=== PATIENT | male | born 1940 | race Two or more races ===

== ENCOUNTER 2019-06-04 08:31 | Emergency (ER) | payer BC ==
[2019-06-04 08:36] VITALS: BMI 28.0
--- NOTE | 2019-06-04 08:42 | PDOC ---
History of Present Illness - General Chief Complaint: Chest Pain Stated Complaint: Chest Pain Time Seen by Provider: 06/04/19 08:42 History Source: Patient, Spouse () Exam Limitations: No Limitations - History of Present Illness Initial Comments: Pt is a 79 yo M, with PMH of CAD (DC 2011 with 2 stents placed), HTN, HLD, IDDM , and gout, who is presenting with substernal chest pain since this morning around 6 am. Pt was at the gym when he experienced substernal chest pain associated with diaphoresis and nausea while he was exercising. Pt denies radiation or vomiting. Pt has "not been feeling well" over the past 2 weeks, with increased swelling of his legs. Pt denies any recent fevers/chills, headache, vision changes, syncope, palpitations, SOB, nausea/vomiting, abdominal pain, urinary symptoms, diarrhea/constipation, or leg swelling. Allergies: NKDA Social: Pt denies any cigarette, alcohol, or drug use. Pt denies any recent travel or sick contacts. Surgical: colon stent and resection (2/2 ischemic colitis) and cardiac stents as above. Family: no relevant history. 06/04/19 09:11 Past History - Travel Traveled outside of the country in the last 30 days: No Close contact w/someone who was outside of country & ill: No - Past Medical History Allergies/Adverse Reactions: Allergies Allergy/AdvReac Type Severity Reaction Status Date / Time No Known Allergies Allergy Verified 06/04/19 08:33 Home Medications: Ambulatory Orders Aspirin [Aspirin EC] 81 mg PO DAILY 06/04/19 Atorvastatin Ca [Lipitor] 40 mg PO DAILY 06/04/19 Febuxostat [Uloric] 40 mg PO DAILY 06/04/19 Nifedipine ER [Procardia Xl -] 60 mg PO DAILY 06/04/19 Saxagliptin HCl [Onglyza] 2.5 mg PO DAILY 06/04/19 Anemia: No Asthma: No Cancer: No Cardiac Disorders: Yes (2 stents) CVA: No COPD: No CHF: No Dementia: No Diabetes: Yes GI Disorders: Yes (H/O ISCHEMIC COLITIS) Disorders: No HTN: Yes Hypercholesterolemia: No Liver Disease: No Seizures: No Thyroid Disease: No - Surgical History Abdominal Surgery: Yes (COLON RESECTION, UMBILICAL HERNIA REPAIR) Appendectomy: No Cardiac Surgery: Yes (2 stents in 2004) Cholecystectomy: No Lung Surgery: No Neurologic Surgery: No Orthopedic Surgery: Yes (RT SHOULDER) - Immunization History Immunization Up to Date: Yes - Suicide/Smoking/Psychosocial Hx Smoking Status: No Smoking History: Never smoked Have you smoked in the past 12 months: No Number of Cigarettes Smoked Daily: 0 Hx Alcohol Use: No Drug/Substance Use Hx: No Substance Use Type: None Review of Systems - Review of Systems Able to Perform ROS?: Yes Is the patient limited [place] proficient: No Constitutional: Yes: Diaphoresis, Weight Stable. No: Chills, Fever, Loss of Appetite, Malaise, Weakness HEENTM: No: Blurred Vision, Double Vision, Nose Congestion, Throat Pain, Throat Swelling, Difficulty Swallowing Respiratory: No: Cough, Orthopnea, Shortness of Breath, Wheezing, Productive cough, Hemoptysis Cardiac (ROS): Yes: Chest Pain. No: Edema, Irregular Heart Rate, Lightheadedness, Palpitations, Syncope, Chest Tightness ABD/GI: No: Constipated, Diarrhea, Nausea, Poor Appetite, Poor Fluid Intake, Vomiting : No: Burning, Pain, Urgency Musculoskeletal: No: Back Pain Integumentary: No: Rash Neurological: No: Paresthesia, Weakness, Unsteady Gait, Dizziness Psychiatric: No: Sleep Pattern Change, Change in Appetite Endocrine: No: Increased Urine, Change in Weight Hematologic/Lymphatic: Yes: Blood Clots (prior DC, ischemic colitis). No: Anemia, Easy Bleeding, Easy Bruising *Physical Exam - Vital Signs Last Vital Signs Temp Pulse Resp BP Pulse Ox 98.0 F 78 18 138/71 98 06/04/19 08:34 06/04/19 08:34 06/04/19 08:34 06/04/19 08:34 06/04/19 08:34 - Physical Exam Comments: Vitals stable, pt afebrile. Pt appears pale and uncomfortable, normal body habitus. Pt alert and oriented x3. manager reading generally intact, muscular strength and sensation intact. No midline spinal tenderness, step-offs, or crepitus. Head normocephalic, atraumatic. Eyes PERRLA, EOMI. Oropharynx without erythema or exudates, no LAD b/l. No nasal congestion, hearing intact. Clear heart sounds, S1/S2, no JVD, or heart murmur. B/l non-pitting pedal edema. Clear lung sounds, no respiratory distress, wheezes, crackles, or accessory muscle use. No abdominal or CVA tenderness to palpation, no rebound, no guarding. Abdomen soft, non-distended, and with normoactive bowel sounds. Skin without jaundice or rash. 06/04/19 09:14 Heart Score/ECG Review - History History: Highly suspicious - Electrocardiogram EKG: Significant ST-depression - Age Age: >/= 65 - Risk Factors Risk Factors Heart Score: Yes Hx Hypercholesterolemia, Yes Hx Hypertension, Yes Hx Diabetes Based on the list above the patient has:: >/=3 risk factors or Hx atherosclerotic disease - ECG Intrepretation Comment:: anterior STEMI 06/04/19 09:21 - ST and T ST Elevation Suggest: Acute Myocardial Infarct ED Treatment Course - LABORATORY CBC & Chemistry Diagram: 06/04/19 08:53 06/04/19 08:53 Medical Decision Making - Medical Decision Making Pt was seen at bedside, also will be seen by attending Dr. Enciso. Pt presenting with acute substernal chest pain associated with diaphoresis and nausea, during exertion at the gym this AM. PMH of CAD with 2 cardiac stents 2/2 DC in 2011, as well as ischemic colitis. ECG done in triage showed anterior STEMI. Pt will be transferred to [facility]). Lab orders placed (not resulted by time of transfer) -- CBC, coags, CMP, cardiac profile, ECG Provided brilinta loading dose, IV heparin, full dose ASA, and 1 SL NG for continued chest pain. Will continue to reassess pt and monitor for symptomatic improvement. ECG: NSR, LAD with anterior STMEI, intervals WNL (HR 81, HI 208, QRS 86, QTc [address] changes from prior ECG (2014). Pt will be transferred to [facility] directly to cardiac laborer [employer] (admitted to Dr. Villalobos with report from Dr. Enciso given). Pt received meds before being transferred. Transfer center called at 850 AM, pt on stretcher for ambulance transfer at 903 AM. Pt was hemodynamically stable while in the ED. 06/04/19 09:22 *DC/Admit/Observation/Transfer Diagnosis at time of Disposition: H/O heart artery stent STEMI (ST elevation myocardial infarction) Qualifiers: Involved coronary artery: unspecified coronary artery Qualified Code(s): I21.3 - ST elevation (STEMI) myocardial infarction of unspecified site Chest pain Qualifiers: Chest pain type: chest pain due to myocardial ischemia Ischemic chest pain type : other angina pectoris type Qualified Code(s): I20.8 - Other forms of angina pectoris - Discharge Dispostion Disposition: TRANSFER ACUTE CARE/OTHER HOSP Condition at time of disposition: Critical Decision to Admit order: No - Referrals - Patient Instructions - Post Discharge Activity - Transfer to Acute Care Facility Receiving Facility: [facility] Supervisor)
[2019-06-04] MEDS ORDERED: ASPIRIN 325 MG TABLET PO ONE (08:43)
[2019-06-04] MEDS ORDERED: HEPARIN NA (PORCINE) 5,000 UNITS/ML 1ML VIAL IVPUSH ONE (08:43)
[2019-06-04] MEDS ORDERED: ASPIRIN 81 MG CHEWABLE TABLETS ONE (08:43)
[2019-06-04] MEDS ORDERED: TICAGRELOR 90 MG TABLET PO ONE (08:58)
[2019-06-04] MEDS ORDERED: HEPARIN NA (PORCINE) 5,000 UNITS/ML 1ML VIAL ONE (08:59)
[2019-06-04] MEDS ORDERED: NITROGLYCERIN SUBLINGUAL 1/150 0.4 MG TAB SL ONE (08:59)
[2019-06-04] MEDS ORDERED: TICAGRELOR 90 MG TABLET PO STA (08:59)
[2019-06-04 09:02] LABS: BASO % 0.5 % (0-2.0); EOS % 0.6 % (0-4.5); HEMATOCRIT 40.6 % (35.4-49); HEMOGLOBIN 13.6 GM/dL (11.7-16.9); LYMPH % 10.7 % (8-40); MCH 30.5 pg (25.7-33.7); MCHC 33.4 g/dl (32.0-35.9); MEAN CELL VOLUME 91.1 fl (80-96); MEAN PLT VOLUME 8.8 fl (7.5-11.1); MONO % 5.1 % (3.8-10.2); NEUT % 83.1 % (42.8-82.8); PLATELET COUNT 222 K/MM3 (134-434); RBC 4.46 M/mm3 (4.00-5.60); RDW 14.1 % (11.9-15.9); WHITE BLOOD COUNT 10.6 K/mm3 (4.0-10.0)
--- NOTE | 2019-06-04 09:07 | PDOC ---
Attending Attestation - Resident Resident Name: Marline Gillis - ED Attending Attestation I have performed the following: I have examined & evaluated the patient, The case was reviewed & discussed with the resident, I agree w/resident's findings & plan, Exceptions are as noted - HPI HPI: 06/04/19 09:03 79 years old with past medical history significant for CAD status post 2 stents , hypertension, high cholesterol presents to the emergency department with exertional chest pain while at the gym this morning approximate 6 7 am. Substernal moderate to severe in severity sharp/pressure like non-radiating associated with nausea and diaphoresis last stent approximately 7 years ago. - Physicial Exam PE: 06/04/19 09:04 ROS: A complete review of 10 out of 10 review of systems is taken and is negative apart from what is previously mentioned below and in the HPI. - Medical Decision Making 06/04/19 09:05 79 years old with chest pain at the gym this morning EKG performed in triage demonstrates acute ST elevation NE in the anterior septal leads. Case discussed with [facility] stat ambulance arranged In the emergency department patient given aspirin heparin load and brilinta load Patient will be transferred emergently to the [facility] for catheterization Pt. consented for transfer. Heart Score/ECG Review - ECG Impressions Comment:: 06/04/19 14:26 ST elevation NE in the anterior septal leads with very subtle reciprocal inferior lead depressions Interpreted by me
[2019-06-04 09:29] VITALS: TEMP 98.6
[2019-06-04 09:41] LABS: ALBUMIN 4.4 g/dl (3.4-5.0); BILIRUBIN,TOTAL 0.5 mg/dL (0.2-1); BLOOD UREA NITROGEN 31.8 mg/dL (7-18); CALCIUM 9.1 mg/dL (8.5-10.1); CREATININE 2.1 mg/dL (0.55-1.3); MAGNESIUM 2.6 mg/dL (1.8-2.4); POTASSIUM 4.6 mmol/L (3.5-5.1); TOT PROT 8.2 g/dl (6.4-8.2)
[2019-06-04 09:53] LABS: INR 0.95 (0.83-1.09); PROTHROMBIN TIME (PATIENT) 11.2 SEC (9.7-13.0)
[2019-06-04] MEDS ORDERED: TICAGRELOR 60 MG TABLET PO SCH (10:00)
[2019-06-04 10:38] VITALS: BP 117/74; PULSE 78
--- NOTE | 2019-06-04 17:18 | EKG ---
Test Reason : Blood Pressure : / mmHG Vent. Rate : 081 BPM Atrial Rate : 081 BPM P-R Int : 208 ms QRS Dur : 086 ms QT Int : 382 ms P-R-T Axes : 068 -32 026 degrees QTc Int : 443 ms NORMAL SINUS RHYTHM LEFT AXIS DEVIATION ST ELEVATION CONSIDER ANTERIOR INJURY OR ACUTE INFARCT ACUTE VA / STEMI ABNORMAL ECG WHEN COMPARED WITH ECG OF 28-FEB-2015 20:23, ST ELEVATION NOW PRESENT IN ANTEROLATERAL LEADS Confirmed by CHANTE CURRAN MD ([id number]) on 06/04/2019 5:17:57 PM Referred By: Confirmed By:CHANTE CURRAN MD
== END 2019-06-04 09:10 | disposition short-term general hospital (02) ==
LOC: JER 08:31
PROC: 3E033GC Introduction of Other Therapeutic Substance into Peripheral Vein, Percutaneous Approach (ICD-10-PCS; principal; 2019-06-04)
DX: I21.3 ST elevation (STEMI) myocardial infarction of unspecified site (principal); I25.10 Atherosclerotic heart disease of native coronary artery without angina pectoris; I10 Essential (primary) hypertension; Z95.5 Presence of coronary angioplasty implant and graft; I25.2 Old myocardial infarction; E78.5 Hyperlipidemia, unspecified; E11.9 Type 2 diabetes mellitus without complications; Z79.4 Long term (current) use of insulin; M10.9 Gout, unspecified; Z79.82 Long term (current) use of aspirin
CPT/HCPCS: 36415; 80053; 82550; 82553; 83735; 84484; 85025; 85610; 93005; 93010; 99285-25; J1644

== ENCOUNTER 2020-01-06 12:30 | Inpatient (IN) | payer BC ==
--- NOTE | 2020-01-06 13:23 | PDOC ---
History of Present Illness - General Chief Complaint: Shortness of Breath Stated Complaint: WEAKNESS Time Seen by Provider: 01/06/20 13:22 - History of Present Illness Initial Comments: 01/06/20 13:23 79 yo M PMH CAD s/p 3 stents, HTN, HLD, s/p colonic repair and hernia repair, presenting with SOB. [place] speaking only. Reports having cough for the past 2 weeks, but has developed SOB with worsening ROMERO over the past 3 days. Has been coughing so hard that he leaks urine. Forced to come in by today after developing mild, reproducible, sternal, 5/10 chest pain, which the patient contributes to coughing and confirms does not feel like his prior MIs. Denies N/V, GARCIA, abd pain, urinary symptoms, fevers/chills, constipatio n/diarrhea. Past History - Past Medical History Allergies/Adverse Reactions: Allergies Allergy/AdvReac Type Severity Reaction Status Date / Time No Known Allergies Allergy Verified 01/06/20 12:45 Home Medications: Ambulatory Orders Aspirin [Aspirin EC] 81 mg PO DAILY 06/04/19 Atorvastatin Ca [Lipitor] 80 mg PO DAILY 06/04/19 Saxagliptin HCl [Onglyza] 2.5 mg PO DAILY 06/04/19 Isosorbide Mononitrate [Imdur -] 60 mg PO DAILY 01/06/20 Metoprolol Tartrate 50 mg PO DAILY 01/06/20 Ticagrelor [Brilinta] 90 mg PO DAILY 01/06/20 Anemia: No Asthma: No Cancer: No Cardiac Disorders: Yes (2 stents) CVA: No COPD: No CHF: No Dementia: No Diabetes: Yes GI Disorders: Yes (H/O ISCHEMIC COLITIS) Disorders: No HTN: Yes Hypercholesterolemia: Yes Liver Disease: No Seizures: No Thyroid Disease: No - Surgical History Abdominal Surgery: Yes (COLON RESECTION, UMBILICAL HERNIA REPAIR) Appendectomy: No Cardiac Surgery: Yes (2 stents in 2004) Cholecystectomy: No Lung Surgery: No Neurologic Surgery: No Orthopedic Surgery: Yes (RT SHOULDER) - Immunization History Immunization Up to Date: Yes - Psycho Social/Smoking Cessation Hx Smoking Status: No Smoking History: Never smoked Have you smoked in the past 12 months: No Number of Cigarettes Smoked Daily: 0 Information on smoking cessation initiated: No Hx Alcohol Use: No Drug/Substance Use Hx: No Substance Use Type: None Review of Systems - Review of Systems Comments:: 01/06/20 15:17 GENERAL/CONSTITUTIONAL: denies fever, chills, diaphoresis, generalized weakness, malaise, loss of appetite, weight change HEAD, EYES, EARS, NOSE AND THROAT: denies rhinorrhea, nasal congestion, throat pain, throat swelling, difficulty swallowing, mouth swelling, ear pain, eye pain, visual changes NEUROLOGIC: denies headache, focal weakness or paresthesias, dizziness, unsteady gait, seizure, mental status changes, bladder or bowel incontinence CARDIOVASCULAR: endorses reproducible chest pain. Denies syncope, palpitations, irregular heart rate, lightheadedness, peripheral edema RESPIRATORY: endorses cough, shortness of breath, and dyspnea with exertion,. Denies wheezing, stridor, hemoptysis GASTROINTESTINAL: denies abdominal pain, abdominal distension, nausea, vomiting, diarrhea, constipation, melena, hematochezia GENITOURINARY: denies dysuria, frequency, urgency, hesitancy, hematuria, flank pain, genital pain MUSCULOSKELETAL: denies myalgia, arthralgia, joint swelling, back pain, neck pain SKIN: denies rash, itching, pallor HEMATOLOGIC/IMMUNOLOGIC: denies easy bleeding, easy bruising, lymphadenopathy, frequent infections ENDOCRINE: denies unexplained weight gain, unexplained weight loss, heat intolerance, cold intolerance PSYCHIATRIC: denies anxiety, depression, suicidal or homicidal ideation, hallucinations *Physical Exam - Vital Signs Last Vital Signs Temp Pulse Resp BP Pulse Ox 97.6 F 78 20 131/83 93 L 01/06/20 12:41 01/06/20 12:41 01/06/20 12:41 01/06/20 12:41 01/06/20 12:41 - Physical Exam 01/06/20 15:18 Gen: well-developed, well-nourished, NAD Neuro: AAOX4, CN II-XII intact, FTN intact, EOMI, PERRLA, 5/5 strength, SILT HEENT: atraumatic, normocephalic, dry mucous membranes Neck: trachea midline, supple CV: regular rate, regular rhythm, no murmurs, rubs, or gallops Pulm: diffuse mild expiratory rhonchi Abd: soft, non-distended, non-tender MSK: full ROM, intact pulses Extr: no edema, no deformities Skin: warm, dry Heart Score/ECG Review - History History: Moderately suspicious - Electrocardiogram EKG: Non specific repolarization disturbance - Age Age: >/= 65 - Risk Factors Risk Factors Heart Score: Yes Hx Hypercholesterolemia, Yes Hx Hypertension Based on the list above the patient has:: 1-2 risk factors - Troponin Troponin: </= normal limit - Score Heart Score - Total: 5 ED Treatment Course - LABORATORY CBC & Chemistry Diagram: 01/06/20 13:58 01/06/20 13:58 Medical Decision Making - Medical Decision Making 01/06/20 14:21 01/06/20 14:52 EKG normal sinus at 70 bpm with sinus arrhythmia, left axis deviation, WI 180, QRS 78, QTc 444. 01/06/20 15:06 CXR without acute pathology. 01/06/20 15:19 Labs unremarkable, Cr at baseline of 1.8, trop negative. Will admit for tele obs considering significant cardiac history. Discharge - Discharge Information Problems reviewed: Yes Clinical Impression/Diagnosis: SOB (shortness of breath) - Follow up/Referral Referrals: Medhat Andre MD [Primary Care Provider] - - Patient Discharge Instructions - Post Discharge Activity
[2020-01-06 14:28] LABS: BASO % 0.6 % (0-2.0); EOS % 2.1 % (0-4.5); HEMOGLOBIN 15.1 GM/dL (11.7-16.9); LYMPH % 24.2 % (8-40); MCHC 33.5 g/dl (32.0-35.9); MEAN CELL VOLUME 89.6 fl (80-96); MONO % 10.3 % (3.8-10.2); NEUT % 62.8 % (42.8-82.8); PLATELET COUNT 242 K/MM3 (134-434); RBC 5.02 M/mm3 (4.00-5.60); RDW 14.7 % (11.9-15.9); WHITE BLOOD COUNT 4.4 K/mm3 (4.0-10.0)
[2020-01-06 14:43] LABS: INR 1.06 (0.83-1.09); PROTHROMBIN TIME (PATIENT) 12.5 SEC (9.7-13.0)
[2020-01-06 14:45] LABS: ACTIVATED PTT 32.2 SECONDS (25.2-36.5)
[2020-01-06 15:09] LABS: ALBUMIN 3.8 g/dl (3.4-5.0); ALK PHOS 129 U/L (45-117); ANION GAP 6 MMOL/L (8-16); BILIRUBIN,TOTAL 0.6 mg/dL (0.2-1); BLOOD UREA NITROGEN 26.4 mg/dL (7-18); CALCIUM 9.1 mg/dL (8.5-10.1); CHLORIDE 109 mmol/L (98-107); CO2 26 mmol/L (21-32); CREATININE 1.8 mg/dL (0.55-1.3); GLUCOSE,RANDOM 120 mg/dL (74-106); POTASSIUM 4.8 mmol/L (3.5-5.1); SGOT/AST 50 U/L (15-37); SGPT/ALT 75 U/L (13-61); SODIUM 141 mmol/L (136-145)
[2020-01-06] MEDS ORDERED: ALBUTEROL SO4 2.5/IPRATROPIUM 0.5 INH SOL 3 ML VIAL.NEB. NEB ONE ×2 (15:45→15:54)
--- NOTE | 2020-01-06 15:49 | PDOC ---
Documentation entered by Ariella Curtis SCRIBE, acting as scribe for Leroy Celeste MD. Leroy Celeste MD: This documentation has been prepared by the Ever chan Adrianna, SCRIBE, under my direction and personally reviewed by me in its entirety. I confirm that the documentation accurately reflects all work, treatment, procedures, and medical decision making performed by me. Attending Attestation - Resident Resident Name: Bandar Chavez - ED Attending Attestation I have performed the following: I have examined & evaluated the patient, The case was reviewed & discussed with the resident, I agree w/resident's findings & plan, Exceptions are as noted - HPI HPI: The patient is a 79 year old male, with a significant PMH of CAD (s/p 3 stents) , HTN, and HLD, presenting with cough for 2 weeks, and SOB for 3 days. Patient endorses dry cough, noting he will leak urine because he is coughing too hard. He additionally complains of progressively worsening SOB with dyspnea on exertion. Today, he developed sternal reproducible chest pain which prompted his visit to the ER. Allergies: NKA, NKDA Surgical History: colonic repair and hernia repair, 3 stents, right shoulder arthroscopy Social History: No toxic habits PCP: Dr. Andre - Physicial Exam PE: 01/06/20 15:45 Patient is awake and alert, overweight, in no significant distress hypoxic to 93 on room air, Normocephalic, atraumatic PERRLA, EOMI No JVD Diffuse rhonchi at the bases bilaterally RRR abdomen soft, nontender, nondistended no lower extremity edema - Medical Decision Making 01/06/20 15:46 Patient is 79-year-old male with history of CAD status post stenting, hypertension, hyperlipidemia who presents to the ER with cough, congestion, retrosternal reproducible chest discomfort and hypoxemia. Chest x-ray reveals no evidence of cardiomegaly/infiltrate or effusion. EKG reveals no evidence of acute ischemia. First set of cardiac enzymes within normal limit. Will administer Combivent therapy; will place on Díaz/telemetry for serial cardiac enzymes and cardiac consult. Heart Score/ECG Review - ECG Impressions Comment:: EKG performed at 13:25 on 01/06/2020 demonstrates rate of 70bpm, normal sinus rhythm with sinus arrhythmia, left axis deviation.
[2020-01-06] MEDS ORDERED: ALBUTEROL SO4 2.5/IPRATROPIUM 0.5 INH SOL 3 ML VIAL.NEB. NEB PRN (16:01)
[2020-01-06 16:10] LABS: MAGNESIUM 2.5 mg/dL (1.8-2.4)
[2020-01-06] MEDS ORDERED: methylPREDNISolone NA SUCC 40 MG/1 ML VIAL ONE (17:06)
[2020-01-06] MEDS: methylPREDNISolone NA SUCC 40 MG/1 ML VIAL IVPUSH SCH ×2 (17:19→23:55)
[2020-01-06 20:35] VITALS: BMI 27.3
[2020-01-07] MEDS ORDERED: INSULIN (NOVOLOG) ASPART 100 UNITS/ML 10ML VIAL SQ ONE (07:32)
[2020-01-07] MEDS: methylPREDNISolone NA SUCC 40 MG/1 ML VIAL IVPUSH SCH ×3 (08:58→23:49)
[2020-01-07] MEDS: ASPIRIN COATED 81 MG TABLET.EC PO SCH (09:01)
--- NOTE | 2020-01-07 09:26 | CON.CARD ---
Consult Consult Specialty:: Cardiology Referred by:: Nancy Vera MD Reason for Consultation:: ROMERO, CAD s/p MIKO - History of Present Illness Chief Complaint: ROMERO History of Present Illness: The patient is a 79 year old male, with a significant PMH of CAD h/o VT (s/p 3 stents), HTN, and HLD, presenting with cough for 2 weeks, and SOB for 3 days. Patient endorses dry cough, noting he will leak urine because he is coughing too hard. He additionally complains of progressively worsening SOB with dyspnea on exertion and wheezing. He subsequently developed sternal reproducible post- tussive chest pain which prompted his visit to the ER. Allergies: NKA, NKDA Surgical History: colonic repair and hernia repair, 3 stents, right shoulder arthroscopy Social History: No toxic habits PCP: Dr. Medhat Ponce Cardiology: Dr. Matthew Ponce - History Source History Provided By: Family Member Limitations to Obtaining History: Language Barrier - Past Medical History Cardio/Vascular: Yes: CAD, HTN, Hyperlipdemia, VT Renal/: Yes: Renal Inusuff Endocrine: Yes: Diabetes Mellitus - Past Surgical History Past Surgical History: Yes: Stent - Alcohol/Substance Use Hx Alcohol Use: No - Smoking History Smoking history: Former smoker Have you smoked in the past 12 months: No Aproximately how many cigarettes per day: 0 If you are a former smoker, when did you quit?: 1971 Home Medications - Allergies Allergies/Adverse Reactions: Allergies Allergy/AdvReac Type Severity Reaction Status Date / Time No Known Allergies Allergy Verified 01/06/20 12:45 - Home Medications Home Medications: Ambulatory Orders Aspirin [Aspirin EC] 81 mg PO DAILY 06/04/19 Atorvastatin Ca [Lipitor] 80 mg PO DAILY 06/04/19 Saxagliptin HCl [Onglyza] 2.5 mg PO DAILY 06/04/19 Isosorbide Mononitrate [Imdur -] 60 mg PO DAILY 01/06/20 Metoprolol Tartrate 50 mg PO DAILY 01/06/20 Ticagrelor [Brilinta] 90 mg PO DAILY 01/06/20 Review of Systems - Review of Systems Cardiovascular: reports: Chest Pain, Shortness of Breath Respiratory: reports: Cough, SOB, SOB on Exertion, Wheezing Vital Signs: Vital Signs Temperature 98.2 F 01/07/20 02:00 Pulse Rate 83 01/07/20 02:00 Respiratory Rate 18 01/07/20 03:00 Blood Pressure 172/98 H 01/07/20 02:00 O2 Sat by Pulse Oximetry (%) 95 01/07/20 07:00 Constitutional: Yes: No Distress, Calm Neck: Yes: Supple Respiratory: Yes: Regular, Cough, Diminished, SOB, SOB on Exertion, Wheezes Gastrointestinal: Yes: Normal Bowel Sounds, Soft, Abdomen, Obese Cardiovascular: Yes: Regular Rate and Rhythm JVD: No Carotid Bruit: No Heart Sounds: Yes: S1, S2 Murmur: Yes: Systolic Murmur, Grade 1 Edema: No - Other Data Labs, Other Data: CBC, BMP 01/06/20 13:58 01/06/20 13:58 INR, PTT INR 1.06 (0.83-1.09) 01/06/20 13:58 Troponin, BNP 01/06/20 01/06/20 01/06/20 13:58 17:37 21:20 Troponin I < 0.02 0.02 < 0.02 Troponin, BNP 01/06/20 01/06/20 01/06/20 13:58 17:37 21:20 Troponin I < 0.02 0.02 < 0.02 NSR @ 73 LAD Prior Cardiac Procedures: PTCA with Stent Ejection Fraction %: LVEF > or = 40 % Imaging - Results Chest X-ray: Report Reviewed (NAD) Problem List - Problems (1) Status post myocardial infarction of anterior wall Code(s): I25.2 - OLD MYOCARDIAL INFARCTION (2) Atypical chest pain Code(s): R07.89 - OTHER CHEST PAIN (3) CAD (coronary artery disease) Code(s): I25.10 - ATHSCL HEART DISEASE OF [place] CORONARY ARTERY W/O ANG PCTRS Qualifiers: Coronary Disease-Associated Artery/Lesion type: [place] artery [place] vs. transplanted heart: [place] heart Associated angina: without angina Qualified Code(s): I25.10 - Atherosclerotic heart disease of [place] coronary artery without angina pectoris (4) COPD exacerbation Code(s): J44.1 - CHRONIC OBSTRUCTIVE PULMONARY DISEASE W (ACUTE) EXACERBATION (5) Elevated LFTs Code(s): R94.5 - ABNORMAL RESULTS OF LIVER FUNCTION STUDIES (6) Hyperlipidemia Code(s): E78.5 - HYPERLIPIDEMIA, UNSPECIFIED Qualifiers: Hyperlipidemia type: pure hypercholesterolemia Qualified Code(s): E78.00 - Pure hypercholesterolemia, unspecified; E78.0 - Pure hypercholesterolemia (7) SOB (shortness of breath) Code(s): R06.02 - SHORTNESS OF BREATH (8) H/O heart artery stent Code(s): Z95.5 - PRESENCE OF CORONARY ANGIOPLASTY IMPLANT AND GRAFT (9) CKD (chronic kidney disease) Code(s): N18.9 - CHRONIC KIDNEY DISEASE, UNSPECIFIED Qualifiers: Chronic kidney disease stage: stage 3 (moderate) Qualified Code(s): N18.3 - Chronic kidney disease, stage 3 (moderate) Assessment/Plan 1. Atypical post-tussive chest pain 2. AE COPD 3. CAD h/o VT, stent 4. HTN 5. Hyperlipidemia 6. Type 2 DM 7. CKD 8. Abnl LFTs P:1. Ruled out VT 2. BD, IV steroids, O2 as needed 3. Continue ASA 81 qd, Imdur 60 qd, Lopressor 50 bid and Brilinta 90 bid, resume Lipitor 80 qd once LFTs elevation resolve, DEANA-I/ARB once renal fxn stable 4. F/u echo already ordered, check TSH, lipid panel and Ha1c 5. F/u with outside classified copy control clerk Matthew Cheney at [facility] upon d/c 6. Thank you for consultative opportunity
[2020-01-07] MEDS ORDERED: METOPROLOL TARTRATE 50 MG TABLET (FP) PO SCH (10:00)
[2020-01-07] MEDS ORDERED: TICAGRELOR 90 MG TABLET PO SCH (10:00)
--- NOTE | 2020-01-07 10:17 | HP ---
Admitting History and Physical - Primary Care Physician PCP: Medhat Andre - Admission Chief Complaint: sob, chest pain History of Present Illness: - HPI HPI: The patient is a 79 year old male, with a significant PMH of CAD (s/p 3 stents), HTN, and HLD, presenting with cough for 2 weeks, and SOB for 3 days. Patient endorses dry cough, noting he will leak urine because he is coughing too hard. He additionally complains of progressively worsening SOB with dyspnea on exertion. Today, he developed sternal reproducible chest pain which prompted his visit to the ER. Allergies: NKA, NKDA Surgical History: colonic repair and hernia repair, 3 stents, right shoulder arthroscopy Social History: No toxic habits PCP: Dr. Andre Pt examined by me in tele-- He has been coughing for about 2 weeks -- non productive denies chills or fever Has been getting SOB for last few days-- no swelling of feet No h/o travel no h/o sick contacts History Source: Patient Limitations to Obtaining History: No Limitations - Past Medical History [employer]: Yes: Other (mild cognitive decline) Cardiovascular: Yes: CAD (s/p stents), HTN, Hyperlipdemia Pulmonary: Yes: Other (ex smoker) - Smoking History Smoking history: Former smoker Have you smoked in the past 12 months: No Aproximately how many cigarettes per day: 0 If you are a former smoker, when did you quit?: 1970 - Alcohol/Substance Use Hx Alcohol Use: No Home Medications - Allergies Allergies/Adverse Reactions: Allergies Allergy/AdvReac Type Severity Reaction Status Date / Time No Known Allergies Allergy Verified 01/06/20 12:45 - Home Medications Home Medications: Ambulatory Orders Aspirin [Aspirin EC] 81 mg PO DAILY 06/04/19 Atorvastatin Ca [Lipitor] 80 mg PO DAILY 06/04/19 Saxagliptin HCl [Onglyza] 2.5 mg PO DAILY 06/04/19 Isosorbide Mononitrate [Imdur -] 60 mg PO DAILY 01/06/20 Metoprolol Tartrate 50 mg PO DAILY 01/06/20 Ticagrelor [Brilinta] 90 mg PO DAILY 01/06/20 Review of Systems - Review of Systems Constitutional: denies: Chills, Fever Cardiovascular: denies: Chest Pain, Shortness of Breath Respiratory: reports: Cough Physical Examination Vital Signs: Vital Signs Temperature 98.2 F 01/07/20 02:00 Pulse Rate 83 01/07/20 02:00 Respiratory Rate 18 01/07/20 03:00 Blood Pressure 172/98 H 01/07/20 02:00 O2 Sat by Pulse Oximetry (%) 95 01/07/20 07:00 Constitutional: Yes: No Distress, Calm Cardiovascular: Yes: Regular Rate and Rhythm Respiratory: Yes: Diminished, Rhonchi Gastrointestinal: Yes: Normal Bowel Sounds, Soft. No: Tenderness Edema: No Labs: CBC, BMP 01/06/20 13:58 01/06/20 13:58 Imaging - Results Chest X-ray: Image Reviewed EKG: Image Reviewed (NSR , LAD) Problem List - Problems (1) CAD (coronary artery disease) Code(s): I25.10 - ATHSCL HEART DISEASE OF [place] CORONARY ARTERY W/O ANG PCTRS (2) Elevated LFTs Code(s): R94.5 - ABNORMAL RESULTS OF LIVER FUNCTION STUDIES (3) Hyperlipidemia Code(s): E78.5 - HYPERLIPIDEMIA, UNSPECIFIED (4) COPD exacerbation Code(s): J44.1 - CHRONIC OBSTRUCTIVE PULMONARY DISEASE W (ACUTE) EXACERBATION (5) SOB (shortness of breath) Code(s): R06.02 - SHORTNESS OF BREATH (6) Chest pain Code(s): R07.9 - CHEST PAIN, UNSPECIFIED Qualifiers: Chest pain type: chest pain due to myocardial ischemia Ischemic chest pain type: other angina pectoris type Qualified Code(s): I20.8 - Other forms of angina pectoris Assessment/Plan PLAN ON solumedrol clinically improving CXR reviewed-- no infiltrates check flu screen hold statins- repeat LFT cardiac enzymes negative check echo cardiology eval anticipate dc home soon
[2020-01-07] MEDS: ISOSORBIDE MONONITRATE 60 MG TAB.SR.24H (FP) PO SCH (12:20)
[2020-01-07 13:29] LABS: ALBUMIN 3.8 g/dl (3.4-5.0); BILIRUBIN,TOTAL 0.4 mg/dL (0.2-1); CALCIUM 8.9 mg/dL (8.5-10.1); CREATININE 2.1 mg/dL (0.55-1.3); POTASSIUM 4.4 mmol/L (3.5-5.1); TOT PROT 8.3 g/dl (6.4-8.2)
--- NOTE | 2020-01-07 14:04 | EKG ---
Test Reason : Blood Pressure : / mmHG Vent. Rate : 070 BPM Atrial Rate : 070 BPM P-R Int : 180 ms QRS Dur : 078 ms QT Int : 412 ms P-R-T Axes : 065 -51 026 degrees QTc Int : 444 ms NORMAL SINUS RHYTHM WITH SINUS ARRHYTHMIA LEFT AXIS DEVIATION ABNORMAL ECG WHEN COMPARED WITH ECG OF 04-JUN-2019 08:32, ST NO LONGER ELEVATED IN ANTEROLATERAL LEADS Confirmed by BINA GRACE, CHANTE ([id number]) on 01/07/2020 2:04:16 PM Referred By: Confirmed By:CHANTE CURRAN MD
--- NOTE | 2020-01-07 15:33 | ECHO ---
Name: DARVIN HUGHES Exam:Adult Echocardiogram Study Date: 01/07/2020 11:29 AM Age: 79 yrs Reason For Study: CP, SOB Height: 66 in Weight: 178 lb BSA: 1.9 m2 MMode/2D Measurements & Calculations IVSd: 1.0 cm Ao root diam: 3.3 cm LVIDd: 3.5 cm LA dimension: 3.8 cm LVIDs: 2.5 cm ACS: 1.6 cm LVPWd: 0.93 cm EDV(Teich): 50.8 ml LVOT diam: 2.0 cm ESV(Teich): 22.6 ml LVLd ap4: 7.1 cm SV(MOD-sp4): 44.0 ml EDV(MOD-sp4): 74.0 ml LVLs ap4: 6.6 cm ESV(MOD-sp4): 30.0 ml TAPSE: 2.0 cm RV S Jesse: 9.5 cm/sec Doppler Measurements & Calculations MV E max jesse: 59.3 cm/sec Ao V2 max: 127.6 cm/sec MV A max jesse: 91.8 cm/sec Ao max P.5 mmHg MV E/A: 0.65 Ao V2 mean: 83.7 cm/sec MV dec time: 0.26 sec Ao mean P.3 mmHg Ao V2 VTI: 25.6 cm DIONICIO(I,D): 2.0 cm2 AI P1/2t: 572.7 msec DIONICIO(V,D): 2.1 cm2 AI max jesse: 428.7 cm/sec LV V1 max P.7 mmHg AI max P.5 mmHg LV V1 mean P.4 mmHg AI dec slope: 219.2 cm/sec2 LV V1 max: 82.7 cm/sec LV V1 mean: 55.9 cm/sec LV V1 VTI: 16.2 cm SV(LVOT): 51.2 ml TR max jesse: 222.6 cm/sec TR max P.8 mmHg PA V2 max: 62.4 cm/sec Med Peak E' Jesse: 4.8 cm/sec PA max P.6 mmHg Med E/e': 12.4 Lat Peak E' Jesse: 7.9 cm/sec Lat E/e': 7.5 Pulm Sys Jesse: 51.1 cm/sec Pulm [place] Jesse: 33.8 cm/sec Pulm S/D: 1.5 Procedure A complete two-dimensional transthoracic echocardiogram was performed (2D, M-mode, Doppler and color flow Doppler). Left Ventricle The left ventricular size, thickness and function are normal. The left ventricular ejection fraction is normal. Ejection Fraction = 60-65%. The left ventricular wall motion is normal. Right Ventricle The right ventricle is normal in size and function. Atria Normal left and right atrial size and function. Mitral Valve There is no mitral regurgitation noted. Tricuspid Valve No tricuspid regurgitation. There was insufficient TR detected to calculate RV systolic pressure. Aortic Valve No hemodynamically significant valvular aortic stenosis. Mild aortic regurgitation. Pulmonic Valve There is no pulmonic valvular regurgitation. Great Vessels The aortic root is normal size. Pericardium/Pleura There is no pericardial effusion. Interpretation Summary The left ventricular size, thickness and function are normal The right ventricle is normal in size and function. Mild aortic regurgitation. MD Junaid Chaparro 01/07/2020 03:32 PM
[2020-01-07] MEDS: METOPROLOL TARTRATE 50 MG TABLET (FP) PO SCH (22:19)
[2020-01-07] MEDS: TICAGRELOR 90 MG TABLET PO SCH (22:19)
[2020-01-08 02:30] VITALS: BP 143/96; PULSE 72; TEMP 97.9
--- NOTE | 2020-01-08 09:23 | PN ---
Progress Note (short form) - Note Progress Note: Stable, no cardiac events; CBC WBC 4.4 K/mm3 (4.0-10.0) 01/06/20 13:58 RBC 5.02 M/mm3 (4.00-5.60) 01/06/20 13:58 Hgb 15.1 GM/dL (11.7-16.9) 01/06/20 13:58 Hct 45.0 % (35.4-49) D 01/06/20 13:58 MCV 89.6 fl (80-96) 01/06/20 13:58 MCH 30.0 pg (25.7-33.7) 01/06/20 13:58 MCHC 33.5 g/dl (32.0-35.9) 01/06/20 13:58 RDW 14.7 % (11.9-15.9) 01/06/20 13:58 Plt Count 242 K/MM3 (134-434) D 01/06/20 13:58 MPV 9.0 fl (7.5-11.1) 01/06/20 13:58 Absolute Neuts (auto) 2.8 K/mm3 (1.5-8.0) 01/06/20 13:58 Neutrophils % 62.8 % (42.8-82.8) 01/06/20 13:58 Lymphocytes % 24.2 % (8-40) 01/06/20 13:58 Monocytes % 10.3 % (3.8-10.2) H 01/06/20 13:58 Eosinophils % 2.1 % (0-4.5) 01/06/20 13:58 Basophils % 0.6 % (0-2.0) 01/06/20 13:58 Nucleated RBC % 0 % (0-0) 01/06/20 13:58 CMP Sodium 139 mmol/L (136-145) 01/07/20 12:45 Potassium 4.4 mmol/L (3.5-5.1) 01/07/20 12:45 Chloride 109 mmol/L (98-107) H 01/07/20 12:45 Carbon Dioxide 20 mmol/L (21-32) L 01/07/20 12:45 Anion Gap 9 MMOL/L (8-16) 01/07/20 12:45 BUN 42.0 mg/dL (7-18) H 01/07/20 12:45 Creatinine 2.1 mg/dL (0.55-1.3) H 01/07/20 12:45 Est GFR (CKD-EPI)AfAm 33.68 01/07/20 12:45 Est GFR (CKD-EPI)NonAf 29.06 01/07/20 12:45 POC Glucometer 276 UNITS (80-120) 01/07/20 06:50 Random Glucose 206 mg/dL (74-106) H 01/07/20 12:45 Hemoglobin A1c % 7.2 % (4.2-6.3) H 01/08/20 06:18 Calcium 8.9 mg/dL (8.5-10.1) 01/07/20 12:45 Magnesium 2.5 mg/dL (1.8-2.4) H 01/06/20 13:58 Total Bilirubin 0.4 mg/dL (0.2-1) 01/07/20 12:45 AST 33 U/L (15-37) 01/07/20 12:45 ALT 67 U/L (13-61) H 01/07/20 12:45 Alkaline Phosphatase 130 U/L (45-117) H 01/07/20 12:45 Creatine Kinase 147 U/L (26-308) 01/06/20 21:20 Troponin I < 0.02 ng/ml (0.00-0.05) 01/06/20 21:20 Total Protein 8.3 g/dl (6.4-8.2) H 01/07/20 12:45 Albumin 3.8 g/dl (3.4-5.0) 01/07/20 12:45 Triglycerides 63 mg/dL (0-150) 01/08/20 06:18 Cholesterol 91 mg/dL (50-200) 01/08/20 06:18 Total LDL Cholesterol 38 mg/dL (5-100) 01/08/20 06:18 HDL Cholesterol 41 mg/dL (40-60) 01/08/20 06:18 TSH 0.49 uIU/ml (0.358-3.74) D 01/08/20 06:18 Assessment/Plan 1. Atypical post-tussive chest pain 2. AE COPD 3. CAD h/o MD, stent 4. HTN 5. Hyperlipidemia 6. Type 2 DM 7. CKD 8. Abnl LFTs P: Echo: Nl except mild AR stable cardiacwise; cont same cardiac meds . F/u with outside golf course designer Matthew Cheney at [facility] d/c
--- NOTE | 2020-01-08 09:57 | DS ---
Physical Examination Vital Signs: Vital Signs Temperature 97.9 F 01/08/20 06:00 Pulse Rate 72 01/08/20 02:28 Respiratory Rate 20 01/08/20 02:28 Blood Pressure 143/96 01/08/20 02:28 O2 Sat by Pulse Oximetry (%) 96 01/07/20 21:00 Findings/Remarks: Pt seen/ examined chart reviewed sitting in chair no distress at bedside wants to go home- says he is fine denies cp/sob Constitutional: Yes: No Distress Eyes: Yes: Conjunctiva Clear Neck: Yes: Supple Cardiovascular: Yes: Regular Rate and Rhythm Respiratory: Yes: Rhonchi (scattered) Gastrointestinal: Yes: Soft Edema: No Neurological: Yes: Alert Psychiatric: Yes: Alert Labs: CBC, BMP 01/06/20 13:58 01/07/20 12:45 Discharge Summary Problems reviewed: Yes Reason For Visit: SOB Current Active Problems Atypical chest pain (Acute) CAD (coronary artery disease) (Acute) CKD (chronic kidney disease) (Acute) COPD exacerbation (Acute) Elevated LFTs (Acute) Hyperlipidemia (Acute) SOB (shortness of breath) (Acute) Status post myocardial infarction of anterior wall (Acute) Hospital Course: The patient is a 79 year old male, with a significant PMH of CAD (s/p 3 stents), HTN, and HLD, presenting with cough for 2 weeks, and SOB for 3 days. Patient endorses dry cough, noting he will leak urine because he is coughing too hard. He additionally complains of progressively worsening SOB with dyspnea on exertion Mi Ruled out treated with steroids for copd cxr - no infiltrate echo - also done much better discussed will d/c on po steroids with gi prophylaxis pt to f/u with his pmd in one week meds reconciled and send to pharmacy Pt / in agreement will add symbicort also Condition: Improved - Instructions Referrals: Medhat Andre MD [Primary Care Provider] - Disposition: HOME - Home Medications Comprehensive Discharge Medication List: Ambulatory Orders Aspirin [Aspirin EC] 81 mg PO DAILY 06/04/19 Atorvastatin Ca [Lipitor] 80 mg PO DAILY 06/04/19 Saxagliptin HCl [Onglyza] 2.5 mg PO DAILY 06/04/19 Isosorbide Mononitrate [Imdur -] 60 mg PO DAILY 01/06/20 Metoprolol Tartrate 50 mg PO DAILY 01/06/20 Ticagrelor [Brilinta -] 90 mg PO DAILY 01/06/20 Albuterol 2.5/Ipratropium 0.5 [Duoneb -] 1 amp NEB Q4H PRN #90 amp 01/08/20 Budesonide/Formeterol Fumarate [SYMBICORT 160/4.5mcg -] 1 inh PO BID #1 cannister 01/08/20 Omeprazole 20 mg PO DAILY #15 capsule. 01/08/20 Prednisone 10 mg PO DAILY #30 tablet 01/08/20
[2020-01-08] MEDS: methylPREDNISolone NA SUCC 40 MG/1 ML VIAL IVPUSH SCH (10:33)
[2020-01-08] MEDS: METOPROLOL TARTRATE 50 MG TABLET (FP) PO SCH (10:34)
[2020-01-08] MEDS: ISOSORBIDE MONONITRATE 60 MG TAB.SR.24H (FP) PO SCH (10:34)
[2020-01-08] MEDS: TICAGRELOR 90 MG TABLET PO SCH (10:34)
[2020-01-08] MEDS: ASPIRIN COATED 81 MG TABLET.EC PO SCH (10:34)
== END 2020-01-08 11:29 | disposition home or self-care (01) | DRG 192 ==
LOC: JER 12:30 → JERBED 15:23 → J2W 18:58 → OBSVTOIN 01-07 11:39
PROVIDERS: ADMIT Internal Medicine; ATTEND Internal Medicine
DX: J44.1 Chronic obstructive pulmonary disease with (acute) exacerbation (principal); I25.10 Atherosclerotic heart disease of native coronary artery without angina pectoris; E78.5 Hyperlipidemia, unspecified; I25.2 Old myocardial infarction; E11.9 Type 2 diabetes mellitus without complications; E66.9 Obesity, unspecified; Z68.27 Body mass index [BMI] 27.0-27.9, adult; R94.5 Abnormal results of liver function studies; R07.89 Other chest pain; I12.9 Hypertensive chronic kidney disease with stage 1 through stage 4 chronic kidney disease, or unspecified chronic kidney disease; E11.22 Type 2 diabetes mellitus with diabetic chronic kidney disease; N18.3 Chronic kidney disease, stage 3 (moderate); Z95.5 Presence of coronary angioplasty implant and graft
CPT/HCPCS: 36415; 71045-TC-FY; 80053; 80061; 82550; 82962; 83036; 83721; 83735; 84443; 84484; 85025; 85610; 85730; 93005; 93010; 93306-TC; 99285-25; G0378

== ENCOUNTER → 2020-05-27 | Day surgery (SDC) | payer BC ==
[2020-05-24 15:07] VITALS: BMI 28.2
[2020-05-27 09:48] VITALS: TEMP 98.4
[2020-05-27 10:16] VITALS: BP 157/77; PULSE 62
--- NOTE | 2020-05-30 18:46 | PATH ---
Surgical Pathology Report Patient Name: DARVIN HUGHES [facility]. Rec. #: [id number] /Age/Gender: 1940 (Age: 80) / M Account: [id number] Location: [facility]-ENDOSCOPY Taken: 05/27/2020 Received: 05/27/2020 Reported: 05/30/2020 Physicians: Wai Vann M.D. Specimen(s) Received STOMACH Clinical History Anemia Postoperative diagnosis: Gastritis, duodenitis, ulceration at anastomosis, hemorrhoids Final Diagnosis STOMACH, BIOPSY: GASTRIC BODY MUCOSA WITH MILD CHRONIC FOCAL ACTIVE GASTRITIS. IMMUNOHISTOCHEMICAL STAIN FOR H. PYLORI IS NEGATIVE. Positive and negative controls (internal if applicable) show appropriate results. Electronically Signed Idalia Jones M.D. Gross Description Received in formalin, labeled "stomach biopsy" are 3 camarena, irregular portions of soft tissue ranging from 0.2-0.3 cm. in greatest dimension. The specimens are submitted in toto in one cassette. /05/27/2020 [facility]05/27/2020
== END | disposition home or self-care (01) ==
LOC: JASU-ENDO 05:23
PROVIDERS: ATTEND Internal Medicine Gastroenterology
PROC: 0DJD8ZZ Inspection of Lower Intestinal Tract, Via Natural or Artificial Opening Endoscopic (ICD-10-PCS; 2020-05-27)
PROC: 0DB68ZX Excision of Stomach, Via Natural or Artificial Opening Endoscopic, Diagnostic (ICD-10-PCS; principal; 2020-05-27 08:30)
DX: K29.00 Acute gastritis without bleeding (principal); K29.80 Duodenitis without bleeding; K57.30 Diverticulosis of large intestine without perforation or abscess without bleeding; K64.8 Other hemorrhoids; Z98.0 Intestinal bypass and anastomosis status
CPT/HCPCS: 82962; 88305-TC; 88342-TC

== ENCOUNTER 2021-05-08 11:36 | Inpatient (IN) | payer BC ==
[2021-05-08 14:38] LABS: BASO % 0.2 % (0-2.0); EOS % 0.1 % (0-4.5); HEMATOCRIT 46.1 % (35.4-49); HEMOGLOBIN 15.1 GM/dL (11.7-16.9); LYMPH % 4.6 % (8-40); MCH 29.8 pg (25.7-33.7); MCHC 32.7 g/dl (32.0-35.9); MEAN PLT VOLUME 8.8 fl (7.5-11.1); MONO % 5.3 % (3.8-10.2); NEUT % 89.8 % (42.8-82.8); PLATELET COUNT 213 10^3/uL (134-434); RBC 5.06 M/mm3 (4.00-5.60); RDW 13.6 % (11.9-15.9); WHITE BLOOD COUNT 13.5 K/mm3 (4.0-10.0)
[2021-05-08 14:43] LABS: INR 0.99 (0.83-1.09); PROTHROMBIN TIME (PATIENT) 12.2 SEC (9.7-13.0)
[2021-05-08 14:45] LABS: ACTIVATED PTT 29.3 SECONDS (25.2-36.5)
[2021-05-08 14:46] LABS: CHLORIDE 105 mmol/L (98-107); SODIUM 141 mmol/L (136-145)
[2021-05-08 14:48] LABS: ALBUMIN 4.4 g/dl (3.4-5.0); CALCIUM 8.9 mg/dL (8.5-10.1); LIPASE 329 U/L (73-393)
[2021-05-08 14:49] LABS: ANION GAP 11 MMOL/L (8-16); BLOOD UREA NITROGEN 25.3 mg/dL (7-18); CO2 24 mmol/L (21-32); GLUCOSE,RANDOM 115 mg/dL (74-106)
[2021-05-08 14:51] LABS: CREATININE 1.7 mg/dL (0.55-1.3); SGOT/AST 36 U/L (15-37); SGPT/ALT 49 U/L (13-61)
[2021-05-08 14:53] LABS: BILIRUBIN,TOTAL 0.5 mg/dL (0.2-1)
[2021-05-08 14:54] LABS: ALK PHOS 130 U/L (45-117)
[2021-05-08] MEDS ORDERED: morphine CARPU-JECT 4 MG/1 ML DISP.SYRIN IVPUSH ONE (20:18)
[2021-05-08] MEDS ORDERED: SODIUM CHLORIDE 0.9% 500 ML INFUS.BAG IV ONE (20:18)
[2021-05-08 21:07] LABS: URINE APPEARANCE Clear; URINE BILIRUBIN Negative (NEGATIVE); URINE COLOR Yellow; URINE GLUCOSE (UA) Negative (NEGATIVE); URINE KETONE Negative (NEGATIVE); URINE LEUK ESTERASE Negative (NEGATIVE); URINE NITRITE Negative (NEGATIVE); URINE PROTEIN Negative (NEGATIVE); URINE UROBILINOGEN 0.2 mg/dL (0.2-1.0)
[2021-05-08] MEDS ORDERED: morphine SULFATE 4 MG/ML VIAL ONE (21:07)
[2021-05-08 21:30] LABS: EPI CELLS 0.5 /uL (0-25.1); HYALINE CASTS 0.25 /uL (0-3.1); URINE BACTERIA 2.7 /uL (0-1359); URINE RBC 4.1 /uL (0-23.9)
[2021-05-08] MEDS ORDERED: ACETAMINOPHEN 1000 MG/100 ML VIAL (NON FORMULARY) IVPB PRN (22:27)
[2021-05-08] MEDS: DEXTROSE 5%-0.45% SALINE 1,000 ML IV SCH (23:17)
[2021-05-09] MEDS: PIPERACILLIN/TAZOB 2.25 GM 2.25 GM in DEXTROSE 5%-WATER - 50 ML IVPB SCH ×4 (04:07→21:38)
[2021-05-09] MEDS ORDERED: PIPERACILLIN/TAZOB 2.25 GM 2.25 GM/50 ML BAG IVPB ONE ×2 (05:09→07:51)
[2021-05-09 06:13] LABS: BASO % 0.2 % (0-2.0); EOS % 0.4 % (0-4.5); HEMOGLOBIN 14.4 GM/dL (11.7-16.9); LYMPH % 12.8 % (8-40); MCHC 32.7 g/dl (32.0-35.9); MEAN CELL VOLUME 91.8 fl (80-96); MEAN PLT VOLUME 9.3 fl (7.5-11.1); MONO % 8.2 % (3.8-10.2); NEUT % 78.4 % (42.8-82.8); PLATELET COUNT 151 10^3/uL (134-434); RBC 4.79 M/mm3 (4.00-5.60); RDW 13.6 % (11.9-15.9); WHITE BLOOD COUNT 8.4 K/mm3 (4.0-10.0)
[2021-05-09 06:21] LABS: CALCIUM 8.4 mg/dL (8.5-10.1)
[2021-05-09 06:22] LABS: BLOOD UREA NITROGEN 21.5 mg/dL (7-18)
[2021-05-09 06:25] LABS: CREATININE 1.5 mg/dL (0.55-1.3)
[2021-05-09] MEDS ORDERED: ACETAMINOPHEN INJECTION 100 ML IVPB ONE (07:51)
[2021-05-09 14:11] VITALS: BMI 28.9
[2021-05-09] MEDS ORDERED: PIPERACILLIN/TAZOBACTAM 2.25 GM VIAL IVPB ONE ×2 (14:39→20:20)
[2021-05-09] MEDS ORDERED: DEXTROSE 5%-WATER - 50 ML IVPB ONE ×2 (14:40→20:20)
[2021-05-09] MEDS: POLYETHYLENE GLYCOL (HEALTHYLAX) 3350 17 GM PACKET PO SCH ×2 (21:39→21:43)
[2021-05-09] MEDS: ATORVASTATIN CA 80 MG TABLET (FP) PO SCH (21:39)
[2021-05-09] MEDS: DEXTROSE 5%-0.45% SALINE 1,000 ML IV SCH (22:30)
[2021-05-10] MEDS ORDERED: PIPERACILLIN/TAZOB 2.25 GM 2.25 GM in DEXTROSE 5%-WATER - 50 ML IVPB SCH (03:00)
[2021-05-10] MEDS: POLYETHYLENE GLYCOL (HEALTHYLAX) 3350 17 GM PACKET PO SCH ×3 (06:26→21:26)
[2021-05-10 07:34] LABS: HEMATOCRIT 42.6 % (35.4-49); HEMOGLOBIN 14.5 GM/dL (11.7-16.9); MCH 30.5 pg (25.7-33.7); MEAN CELL VOLUME 89.8 fl (80-96); MEAN PLT VOLUME 9.4 fl (7.5-11.1); PLATELET COUNT 191 10^3/uL (134-434); RBC 4.75 M/mm3 (4.00-5.60); RDW 13.8 % (11.9-15.9); WHITE BLOOD COUNT 7.2 K/mm3 (4.0-10.0)
[2021-05-10 08:01] LABS: ALBUMIN 3.6 g/dl (3.4-5.0); BLOOD UREA NITROGEN 14.1 mg/dL (7-18)
[2021-05-10 08:04] LABS: CREATININE 1.6 mg/dL (0.55-1.3)
[2021-05-10 08:05] LABS: BILIRUBIN,TOTAL 0.8 mg/dL (0.2-1); TOT PROT 7.1 g/dl (6.4-8.2)
[2021-05-10] MEDS: ISOSORBIDE MONONITRATE 60 MG TAB.SR.24H (FP) PO SCH (09:34)
[2021-05-10] MEDS: amLODIPine BESYLATE 10 MG TABLET (FP) PO SCH (09:34)
[2021-05-10] MEDS ORDERED: cefTRIAXone SODIUM 1 GM VIAL ONE (13:09)
[2021-05-10] MEDS ORDERED: DEXTROSE 5%-WATER - 50 ML IVPB ONE (13:09)
[2021-05-10] MEDS: CEFTRIAXONE 1 GM in DEXTROSE 5%-WATER - 50 ML IVPB SCH (13:40)
[2021-05-10] MEDS: ATORVASTATIN CA 80 MG TABLET (FP) PO SCH (21:26)
[2021-05-11] MEDS: POLYETHYLENE GLYCOL (HEALTHYLAX) 3350 17 GM PACKET PO SCH ×2 (06:46→15:08)
[2021-05-11] MEDS ORDERED: cefTRIAXone SODIUM 1 GM VIAL ONE (09:22)
[2021-05-11] MEDS ORDERED: DEXTROSE 5%-WATER - 50 ML IVPB ONE (09:22)
[2021-05-11] MEDS: ISOSORBIDE MONONITRATE 60 MG TAB.SR.24H (FP) PO SCH (09:49)
[2021-05-11] MEDS: amLODIPine BESYLATE 10 MG TABLET (FP) PO SCH (09:49)
[2021-05-11 09:59] VITALS: BP 131/74; PULSE 82; TEMP 98.8
[2021-05-11] MEDS: CEFTRIAXONE 1 GM in DEXTROSE 5%-WATER - 50 ML IVPB SCH (10:55)
== END 2021-05-11 15:15 | disposition home or self-care (01) | DRG 392 ==
LOC: JER 11:36 → UNDOADMIN 22:15 → JERBED 22:15 → J4W 05-09 09:54
PROVIDERS: ADMIT Internal Medicine; ATTEND Internal Medicine
DX: K52.9 Noninfective gastroenteritis and colitis, unspecified (principal); E11.43 Type 2 diabetes mellitus with diabetic autonomic (poly)neuropathy; I10 Essential (primary) hypertension; E78.5 Hyperlipidemia, unspecified; E11.9 Type 2 diabetes mellitus without complications; I25.10 Atherosclerotic heart disease of native coronary artery without angina pectoris; D64.9 Anemia, unspecified; J45.909 Unspecified asthma, uncomplicated; E66.9 Obesity, unspecified; Z68.29 Body mass index [BMI] 29.0-29.9, adult; K59.00 Constipation, unspecified; Z98.61 Coronary angioplasty status; D72.829 Elevated white blood cell count, unspecified
CPT/HCPCS: 36415; 74174-TC; 80048; 80053; 81003; 82272; 82378; 82550; 82962; 82977; 83605; 83690; 84484; 85025; 85027; 85610; 85730; 86140; 86850; 86900; 86901; 87086; 93005; 93010; 99285-25; C9803; J0131; Q9967; U0003; U0005

== ENCOUNTER 2022-08-13 14:20 | Emergency (ER) | payer OTHER ==
[2022-08-13 14:31] VITALS: TEMP 97.7; BMI 28.7
[2022-08-13 17:34] LABS: BASO % 0.8 % (0-2.0); EOS % 4.6 % (0-4.5); HEMATOCRIT 39.7 % (35.4-49); HEMOGLOBIN 13.3 GM/dL (11.7-16.9); LYMPH % 28.5 % (8-40); MCHC 33.6 g/dl (32.0-35.9); MEAN CELL VOLUME 89.3 fl (80-96); MEAN PLT VOLUME 9.1 fl (7.5-11.1); NEUT % 53.1 % (42.8-82.8); PLATELET COUNT 205 10^3/uL (134-434); RBC 4.44 M/mm3 (4.00-5.60); RDW 13.6 % (11.9-15.9); WHITE BLOOD COUNT 5.2 K/mm3 (4.0-10.0)
[2022-08-13 17:54] LABS: ALBUMIN 3.6 g/dl (3.4-5.0)
[2022-08-13 17:55] LABS: BLOOD UREA NITROGEN 42.1 mg/dL (7-18)
[2022-08-13 17:58] LABS: CREATININE 2.1 mg/dL (0.55-1.3)
[2022-08-13 17:59] LABS: BILIRUBIN,TOTAL 0.4 mg/dL (0.2-1); TOT PROT 7.6 g/dl (6.4-8.2)
[2022-08-13 19:08] VITALS: BP 130/71; PULSE 62; RESP 20
== END 2022-08-13 21:14 | disposition left against medical advice (07) ==
LOC: JER 14:20
DX: R07.9 Chest pain, unspecified (principal)
CPT/HCPCS: 36415; 71046-TC-FY; 80053; 84484; 85025; 93005; 93010; 99285-25; C9803-CS; U0003; U0005